=== PATIENT | female | born 1960 | race African-American/Black ===

== ENCOUNTER 2024-07-17 21:05 | Inpatient (IN) | payer OTHER ==
[2024-07-17 21:50] VITALS: BMI 20.3
[2024-07-17] MEDS ORDERED: NALOXONE HCL 0.4 MG/ML VIAL IM PRN (22:03)
[2024-07-17] MEDS ORDERED: NICOTINE POLACRILEX 2 MG GUM BUC PRN (22:03)
[2024-07-17] MEDS ORDERED: POLYETHYLENE GLYCOL (HEALTHYLAX) 3350 17 GM PACKET PO PRN (22:03)
[2024-07-17] MEDS ORDERED: NALOXONE (NARCAN) HCL 4 MG/0.1 ML SPRAY NS PRN (22:03)
[2024-07-17] MEDS ORDERED: NICOTINE POLACRILEX 2 MG LOZENGE BC PRN (22:03)
[2024-07-17] MEDS ORDERED: BISMUTH SUBSALICYLATE 524 MG/30 ML PO PRN (22:03)
[2024-07-17] MEDS ORDERED: IBUPROFEN 400 MG TABLET (FP) PO PRN (22:03)
[2024-07-17] MEDS ORDERED: MAGNESIUM HYDROX 2400MG/30ML ORAL SUSPENSION 30 ML CUP PO PRN (22:03)
[2024-07-17] MEDS ORDERED: BENZONATATE 200 MG CAPSULE PO PRN (22:03)
[2024-07-17] MEDS ORDERED: LOPERAMIDE HCL 2 MG CAPSULE PO PRN (22:03)
[2024-07-17] MEDS ORDERED: ACETAMINOPHEN 325 MG TABLET (FP) PO PRN (22:03)
[2024-07-17] MEDS ORDERED: P-EPHED 60MG/TRIPROLIDI 2.5MG TABLET PO PRN (22:09)
[2024-07-18] MEDS ORDERED: LORazepam 1 MG TABLET PO PRN (08:46)
[2024-07-18] MEDS: IBUPROFEN 600 MG TABLET (FP) PO PRN (08:59)
[2024-07-18] MEDS: SULFAMETHOXAZOLE/TRIMETHOPRIM 800MG/160MG D.S. TABLET PO ONE (10:10)
[2024-07-18] MEDS: amLODIPine BESYLATE 5 MG TABLET (FP) PO SCH (10:10)
[2024-07-18] MEDS: BICTEGRAV/EMTRICIT/TENOFOV (BIKTARVY) 50-200-25 MG TABLET PO SCH (10:11)
[2024-07-18] MEDS: LORazepam 2 MG TABLET PO SCH (10:11)
[2024-07-18] MEDS: PRENATAL VITAMINS W/ FOLIC ACID TABLET (FP) PO SCH (10:11)
[2024-07-18] MEDS: HYDROCORTISONE 0.5% TOPICAL CREAM 30 GM TUBE TP PRN (10:33)
[2024-07-18] MEDS: ACAMPROSATE CALCIUM 333 MG TABLET.DR PO SCH ×2 (13:08→22:49)
[2024-07-18 14:40] LABS: HEMATOCRIT 36.4 % (32.4-45.2); HEMOGLOBIN 11.5 GM/dL (10.7-15.3); MCH 29.9 pg (25.7-33.7); MCHC 31.5 g/dl (32.0-36.0); MEAN PLT VOLUME 8.1 fl (7.5-11.1); PLATELET COUNT 191 10^3/uL (134-434); RBC 3.83 M/mm3 (3.60-5.2); RDW 13.5 % (11.6-15.6); WHITE BLOOD COUNT 2.7 K/mm3 (4.0-10.0)
[2024-07-18 14:48] LABS: CHLORIDE 107 mmol/L (98-107); POTASSIUM 4.1 mmol/L (3.5-5.1); SODIUM 136 mmol/L (136-145)
[2024-07-18 14:56] LABS: BILIRUBIN,TOTAL 0.4 mg/dL (0.2-1)
[2024-07-18 14:57] LABS: ALK PHOS 76 U/L (45-117)
[2024-07-18 14:59] LABS: CALCIUM 9.1 mg/dL (8.5-10.1)
[2024-07-18 15:00] LABS: ALBUMIN 3.2 g/dl (3.4-5.0); BLOOD UREA NITROGEN 19.2 mg/dL (7-18); GLUCOSE,RANDOM 70 mg/dL (74-106)
[2024-07-18 15:02] LABS: ANION GAP 5 mmol/L (4-13); CO2 23 mmol/L (21-32)
[2024-07-18 15:04] LABS: CREATININE 0.6 mg/dL (0.55-1.3); SGOT/AST 16 U/L (15-37); SGPT/ALT 14 U/L (13-61)
[2024-07-18] MEDS: guaiFENesin 600 MG TABLET.ER (FP) PO PRN (15:04)
[2024-07-18 15:05] LABS: TOT PROT 7.6 g/dl (6.4-8.2)
[2024-07-18] MEDS: SULFAMETHOXAZOLE/TRIMETHOPRIM 800MG/160MG D.S. TABLET PO SCH (17:00)
[2024-07-18] MEDS: THIAMINE 100 MG TABLET PO SCH (22:49)
[2024-07-18] MEDS: MELATONIN 5 MG TABLETS PO SCH (22:49)
[2024-07-18] MEDS: ALBUTEROL SO4 0.083% IH SOL 2.5 MG/3 ML VIAL.NEB. NEB PRN (23:04)
[2024-07-19] MEDS: ONDANSETRON *ODT* 4 MG TABLET SL PRN (10:08)
[2024-07-19] MEDS ORDERED: TRIMETHOBENZAMIDE HCL 200MG/2ML INJ IM PRN (10:20)
[2024-07-19] MEDS: MAG HYDROX/AL HYDROX/SIMETH 30 ML UNIT-DOSE CUP PO PRN (19:24)
[2024-07-20] MEDS: LORazepam 1 MG TABLET PO SCH (05:53)
[2024-07-20] MEDS: MELATONIN 5 MG TABLETS PO SCH (22:05)
[2024-07-21] MEDS ORDERED: LORazepam 0.5 MG TABLET PO PRN
[2024-07-21] MEDS: LORazepam 0.5 MG TABLET PO SCH (05:07)
[2024-07-21] MEDS: BENZOCAINE/MENTHOL (CHLORASEPTIC ) LOZENGE MM PRN (17:41)
[2024-07-22] MEDS: LORazepam 0.5 MG TABLET PO ONE (05:51)
[2024-07-22 09:22] VITALS: BP 145/80; PULSE 70; RESP 16; TEMP 97.8
== END 2024-07-22 09:53 | disposition home or self-care (01) | DRG 897 ==
LOC: YASAS 21:05 → Y6N 22:20
PROVIDERS: ADMIT Allergy & Immunology; ATTEND Surgery
PROC: HZ2ZZZZ Detoxification Services for Substance Abuse Treatment (ICD-10-PCS; principal; 2024-07-17)
DX: F10.230 Alcohol dependence with withdrawal, uncomplicated (principal); F14.20 Cocaine dependence, uncomplicated; F19.282 Other psychoactive substance dependence with psychoactive substance-induced sleep disorder; F19.280 Other psychoactive substance dependence with psychoactive substance-induced anxiety disorder; L97.929 Non-pressure chronic ulcer of unspecified part of left lower leg with unspecified severity; F17.210 Nicotine dependence, cigarettes, uncomplicated; Z21 Asymptomatic human immunodeficiency virus [HIV] infection status; I10 Essential (primary) hypertension; I73.9 Peripheral vascular disease, unspecified; J45.20 Mild intermittent asthma, uncomplicated; Z79.899 Other long term (current) drug therapy
CPT/HCPCS: 0241U-QW; 36415; 71046-TC-FY; 80053; 80305; 80307; 85027; 86593; 86780; 87811; 93005; 93010; 94640; Q0162